=== PATIENT | female | born 1975 | race Caucasian/White ===

== ENCOUNTER 2017-12-04 19:12 | Emergency (ER) | payer BC ==
[2017-12-04 19:19] VITALS: BMI 35.2
[2017-12-04] MEDS ORDERED: TORADOL 60 MG VIAL ONE (19:50)
[2017-12-04] MEDS ORDERED: TORADOL 60 MG VIAL IM ONE (19:50)
--- NOTE | 2017-12-04 19:50 | DR.GENAD ---
HPI - PCP Primary Care Physician: eric silva - Complaint/Symptoms Chief Complaint Doctors Comments: Patient presents with complain that she had a siezure at home that lasted 20minutes according to spouse. She bit the tip of her tongue tonight. She has had seizures greather than 20 years; she is followed by a neurologist in [place]. She presently take Lamictal 200mg daily. Her EEGs have been normal but she states that she has a brain lesion on the right frontal lobe. CT brain 03/05/13 was negative for lesion. She admits to a headache. Chief Complaint:: Patient reports she had a seizure at home. Patient reports she fell on her right arm and bit her tongue. Patient reports severe headache. Family member states that he has contacted neurologist lucille. Hx of seizures since age 16. Patient compliant with medications at home. - Source History Provided: Patient - Mode of Arrival Mode of Arrival: Ambulatory - Timing Onset of Chief Complaint: 12/04/17 PMH - PMH Past Medical History: Yes Past Medical History: Migraines, Seizures Past Surgical History: Yes Surgical History: Cholecystectomy, Hysterectomy, Ortho Surgery, Tonsillectomy, Other - Family History History of Family Medical Conditions: Yes Family Medical History: Diabetes Mellitus, Heart Failure - Social History Type of Tobacco Use: None Does any household member use tobacco: No Alcohol Use: None Do you use any recreational Drugs:: No Lives With: Family Lives Where: Home - infectious screening In the last 2 months have you had wt loss of >10#?: NO Have you had fever, night sweats or hemotysis?: No Have you traveled outside the country in the last 6 months?: No Isolation: Standard ROS - Review of Systems Eyes: No Symptoms Reported ENTM: No Symptoms Reported Respiratoy: No Symptoms Reported Cardiovascular: No Symptoms Reported Gastrointestinal/Abdominal: No Symptoms Reported Genitourinary: No Symptoms Reported Neurological: No Symptoms Reported Musculoskeletal: No Symptoms Reported Integumentary: No Symptoms Reported Hematologic/Lymphatic: No Symptoms Reported Endocrine: No Symptoms Reported Psychiatric: No Symptoms Reported All Other Systems: Reviewed and Negative PE - Vital Signs Vitals: Temperature 97.6 F Pulse Rate 98 Respiratory Rate 20 Blood Pressure [Left Arm] 146/72 Blood Pressure [Right Arm] 164/77 Blood Pressure 128/74 O2 Sat by Pulse Oximetry 108 - General Limitations: No Limitations General Appearance: Alert, In No Apparent Distress - Head Head Exam: Normal Inspection, Atraumatic - Eyes Eye exam: Normal Appearance, PERRL, EOMI - ENT ENT Exam: Normal Exam, Other (tip of tongue with small abrasion) External Ear Exam: Normal External Inspection TM/Canal Exam: Bilateral Normal Nose Exam: Normal Nose Exam Mouth Exam: Normal Inspection Throat Exam: Normal Inspection - Neck Neck Exam: Normal Inspection, Full ROM - Chest Chest Inspection: Normal Inspection - Respiratory Respiratory Exam: Normal Lung Sounds Bilat Respiratory Exam: Bilateral Clear to Auscultation - Cardiovascular Cardiovascular Exam: Regular Rate, Normal Rhythm - Abdominal Exam Abdominal Exam: Normal Inspection, Normal Bowel Sounds Abdominal Tenderness: negative: RUQ, RLQ, LUQ, LLQ, Epigastrium, Suprapubic, Diffuse, Mild, Moderate, Severe, Other - Extremities Extremities Exam: Normal Inspection - Back Back Exam: Normal Inspection, Full ROM - Neurologic Neurological Exam: Alert, Oriented X3 - Psychiatric Psychiatric Exam: Normal Affect, Normal Mood - Skin Skin Exam: Warm, Dry, Intact Course - Education/Counseling Educated On: Treatment, Diagnosis, Needs for Follow Up - Diagnosis Discharge Problem: Seizure disorder, Post-seizure headache - Discharge Plan Condition: Stable - Follow ups/Referrals Follow ups/Referrals: ERIC SILVA [Primary Care Provider] - 3 days - Instructions
[2017-12-04 20:19] VITALS: BP 106/62
== END 2017-12-04 20:19 | disposition home or self-care (01) ==
LOC: ER 19:12
DX: G40.909 Epilepsy, unspecified, not intractable, without status epilepticus (principal); G44.309 Post-traumatic headache, unspecified, not intractable
CPT/HCPCS: 96372; 99282; J1885